=== PATIENT | female | born 1930 | race African-American/Black ===

== ENCOUNTER 2016-09-06 03:07 | Outpatient (CLI) | END 2016-09-06 03:08 | LOC: AMBL 03:07 | PROVIDERS: ATTEND Emergency Medicine | DX: R10.9 Unspecified abdominal pain (principal); R03.0 Elevated blood-pressure reading, without diagnosis of hypertension ==

== ENCOUNTER 2016-11-27 02:36 | Outpatient (CLI) | END 2016-11-27 02:37 | disposition short-term general hospital (02) | LOC: AMBL 02:36 | PROVIDERS: ATTEND Family Medicine | DX: R56.9 Unspecified convulsions (principal); E11.9 Type 2 diabetes mellitus without complications; R53.1 Weakness ==